=== PATIENT | female | born 1975 | race Caucasian/White ===

== ENCOUNTER 2021-06-17 13:00 | Outpatient (RCR) | payer OTHER, SELFPAY | END 2021-07-28 12:02 | disposition home or self-care (01) | LOC: HO.PT 13:00 | PROVIDERS: PCP Nurse Practitioner Family; Visit Provider Obstetrics & Gynecology | DX: N81.84 Pelvic muscle wasting (principal) | CPT/HCPCS: 97110; 97112; 97140; 97162; 97530 ==

== ENCOUNTER → 2022-12-24 13:00 | Outpatient (BNV) | payer OTHER, SELFPAY | PROVIDERS: Visit Provider Psychiatry & Neurology Psychiatry | DX: F33.2 Major depressive disorder, recurrent severe without psychotic features (principal) | CPT/HCPCS: 99205 ==

== ENCOUNTER 2024-03-10 12:55 | Outpatient (REF) | payer OTHER, SELFPAY ==
--- NOTE | ~2024-03-10 | MR_ITS ---
EXAMINATION: MR BRAIN WITHOUT AND WITH CONTRAST CLINICAL INFORMATION: Multiple sclerosis. COMPARISON: None available. TECHNIQUE: Multiplanar, multisequence MRI of the brain was obtained before and after the intravenous administration of 6.5 mL Gadavist without reported immediate complications. FINDINGS: Submitted for interpretation on May 09, 2024. There are few, scattered, bilateral, subcortical deep white matter nonenhancing no restricted diffusion hyperintense T2 FLAIR signal foci in the supratentorial compartment both hemispheres. No signal abnormality/lesions in the supratentorial compartment. No restricted diffusion. No intra-axial or extra-axial enhancing lesion. Amaya-white matter differentiation is normal. No acute intracranial hemorrhage, mass effect, midline shift, hydrocephalus or herniation. Flow-void signal within the main cerebral vessels is normal. Sellar/suprasellar region is normal. Craniocervical junction is intact. . MR/MR head/brain wo/w con IMPRESSION: No abnormal enhancement or acute brain abnormality. Bilateral hyperintense T2 FLAIR signal foci supratentorial compartment in keeping with non active demyelinating plaques according to clinical diagnosis. Recommend correlation with prior imaging exams. Electronically signed by: Steven Ojeda MD 05/09/2024 02:57 PM EST
[2024-03-10] MEDS: gadobutroL 7.5 ML VIAL IVPUSH (13:43)
== END 2024-03-10 12:56 | disposition home or self-care (01) ==
LOC: HO.MRI 12:55
PROVIDERS: PCP Family Medicine; Visit Provider Psychiatry & Neurology Neurology
DX: G35 Multiple sclerosis (principal)
CPT/HCPCS: 70553; A9585

== ENCOUNTER → 2024-03-10 13:17 | Outpatient (BNV) | payer OTHER, SELFPAY | PROVIDERS: PCP Family Medicine; Visit Provider Radiology Diagnostic Radiology | DX: G35 Multiple sclerosis (principal) | CPT/HCPCS: 70553 ==

== ENCOUNTER 2024-03-30 13:32 | Outpatient (REF) | payer OTHER, SELFPAY ==
[2024-03-30 15:56] LABS: Erythrocyte Sedimentation Rate 6 MM/HR (0-20)
[2024-03-31 08:15] LABS: HIV AB/AG Nonreactive (Nonreactive); HIV Num 1 0.07 S/CO (0.00-0.99)
[2024-03-31 18:22] LABS: Lyme Abs Screen <0.90 index
[2024-03-31 20:18] LABS: Myeloperoxidase Antibody <1.0 AI; Proteinase 3 PR3 Antibodies <1.0 AI
[2024-04-05 08:18] LABS: Anti Nuclear Antibody Screen NEGATIVE (NEGATIVE)
== END 2024-03-30 13:33 | disposition home or self-care (01) ==
LOC: HO.LAB 13:32
PROVIDERS: Visit Provider Psychiatry & Neurology Neurology
DX: M79.7 Fibromyalgia (principal); G93.49 Other encephalopathy
CPT/HCPCS: 36415; 82550; 85652; 86021; 86038; 86617; 86618; 87389